=== PATIENT | male | born 1985 | race Caucasian/White ===

== ENCOUNTER 2023-08-18 17:36 | Outpatient (REF) | payer BC, SELFPAY | END 2023-08-18 17:37 | disposition home or self-care (01) | LOC: LBN 17:36 | PROVIDERS: Visit Provider Nurse Practitioner Family | DX: J02.9 Acute pharyngitis, unspecified (principal) | CPT/HCPCS: 87070 ==

== ENCOUNTER 2024-08-21 11:18 | Outpatient (CLI) | payer BC, SELFPAY ==
--- NOTE | 2024-08-21 09:00 | DI.RAD_ITS ---
Exam(s) XR FOOT RT COMPLETE XR HEEL RT OS CALCIS EXAM: XR FOOT RT COMPLETE and XR heel RT os calcis CLINICAL HISTORY: comparison,pain rt foot, [id number]. TECHNIQUE: 2D digital imaging was performed of the right os calcis and foot. Five images were obtai sadi. AP, oblique and lateral views were obtained. COMPARISON: There are no priors for comparison. FINDINGS: BONES: No acute fracture is present. No bony destructive lesion is seen. There is a tiny enthesophyte at the posterior calcaneus. JOINTS: No dislocation present. 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 SOFT TISSUE: Normal. IMPRESSION: Unremarkable radiographs of the right foot. DATA REPOSITORY: RADIATION DOSE DELIVERED:
--- NOTE | 2024-08-21 09:00 | DI.RAD_ITS ---
Exam(s) XR FOOT LT COMPLETE XR HEEL LT OS CALCIS EXAM: XR FOOT LT COMPLETE and XR heel LT os calcis CLINICAL HISTORY: achilles tendininitis left,m76.60,m65.28. TECHNIQUE: 2D digital imaging was performed of the left os calcis and foot. Five images were obtain ed. AP, oblique and lateral views were obtained. COMPARISON: There are no priors for comparison. FINDINGS: BONES: No acute fracture is present. No bony destructive lesion is seen. There is a small subcutaneou s cyst at the posterior process of the calcaneus. There is a tiny enthesophyte at the posterior calc aneus. JOINTS: No dislocation present. 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 SOFT TISSUE: There is soft tissue swelling posterior to the calcaneus. IMPRESSION: Soft tissue swelling posterior to the calcaneus. This may represent in the Achilles tear or tendinop athy. MRI should be considered for further evaluation. DATA REPOSITORY: RADIATION DOSE DELIVERED:
== END 2024-08-21 11:38 ==
LOC: DI 11:22
PROVIDERS: PCP Family Medicine; Visit Provider Podiatrist
DX: M76.62 Achilles tendinitis, left leg (principal); M79.671 Pain in right foot
CPT/HCPCS: 73630; 73650